=== PATIENT | male | born 1965 | race Caucasian/White ===

== ENCOUNTER 2020-04-16 06:00 | Day surgery (SDC) | payer OTHER, SELFPAY ==
[2019-07-10 15:09] VITALS: BMI 30.9
--- NOTE | 2020-04-15 19:32 | HP.PCM_ITS ---
History and Physical Date of Admission: 04/16/20 HISTORY OF PRESENT ILLNESS 54 year old man presents with an enlarging soft tissue mass left posterior neck over the last several months. He denies headaches. He denies recent infection. There is some discomfort when he bumps it. He denies trauma. He presents at this time for further evaluation and treatment. PAST MEDICAL HISTORY Asthma PAST SURGICAL HISTORY None ALLERGIES No Known Allergies MEDICATIONS albuterol sulfate fluticasone furoate-vilantero FAMILY HISTORY Other - Asthma SOCIAL HISTORY Smoking - Never. Alcohol use - Yes. Substance use - No. REVIEW OF SYSTEMS General - Denies fever, fatigue, and weight loss. Eyes - Denies cataracts and glaucoma. ENT - Denies nasal congestion and sore throat. Endocrine - Denies excessive thirst and urination. Skin - Denies skin cancer. Has enlarging soft tissue mass left posterior neck. Musculoskeletal - Denies joint pain, joint stiffness, weakness of muscles and joints, back pain, and arthritis. Neuro - Denies headaches. Cardiovascular - Denies chest pain, fatigue, and shortness of breath with exer tion. Psych - Denies anxiety and depression. Respiratory - Denies chronic cough. Has shortness of breath. Has asthma. Gastrointestinal - Denies nausea, vomiting, diarrhea, and constipation. Hematologic - Denies abnormal bruising and bleeding. Genitourinary - Denies hematuria and urinary frequency. PHYSICAL EXAMINATION General - Alert and Oriented. HEENT - PERRL. EOMI. Throat is clear. No suspicious lesions noted. Neck - Supple and nontender. No cervical adenopathy. On the left posterior neck is a soft tissue mass that measures 1.5 cm. It is mobile. No evidence infection. Mild discomfort when it is bumped. Lungs - Clear to auscultation. Heart - Regular rate and rhythm. Abdomen - Soft and nondistended. Extremities - FROM. No axillary adenopathy. Radial pulses are palpable. No suspicious lesions noted. Neuro - CN II-XII grossly intact. Psych - Normal mood and affect. ASSESSMENT 1.5 cm painful soft tissue mass left posterior neck. PLAN Recommend excision of this soft tissue mass left posterior neck and send it to Pathology for analysis to rule out carcinoma. Depending how much skin is needed to be excised will determine if a local skin flap is necessary. Surgery will be done under local anesthesia and IV sedation on an outpatient basis. Patient was informed of the risks and complications of the procedure including alternatives to surgery. These were discussed with the patient personally. Patient voices understanding and wishes to proceed. Some of the risks and complications were included in a form from the [employer] [place] [employer]. We discussed the current risks associated with COVID-19. While it is understood that there is a community spread of COVID-19, the risk of pauline COVID-19 while at [facility] ([facility]) is very low; however, the risk cannot be completely mitigated because of the community spread of the disease. We discussed in detail the risk of exposure to and/or potential harm posed by the COVID-19 virus with having a surgery/procedure at this time versus the risk of delaying the surgery/procedure. It is not possible to know either the risk of delaying the surgery or procedure or chance of getting an infection with perfect accuracy, but a joint decision was made to proceed at this time with the scheduled surgery/procedure as indicated on the consent form. Patient was notified that we will need to comply with any screening or testing [facility] wishes to perform or that surgery may be delayed for any positive results. Discussed with the patient that I was tested for COVID-19 on 12/25/19 which was negative and on 01/08/20 which was negative and on 01/22/20 which was negative and on 02/05/20 which was negative and on 02/19/20 which was negative and on 03/11/20 which was negative and on 04/01/20 which was negative. My testing regimen at this time is to be COVID-19 tested every 2 weeks or so. Procedure Criteria Procedure Type: Elective COVID Risk Discussion: The surgeon/proceduralist and patient have discussed in detail the risk of exposure to and/or potential harm posed by the COVID-19 virus with having a surgery/procedure at this time versus the risk of delaying the surgery/procedure. It is not possible to know either the risk of delaying the surgery or procedure or chance of getting an infection with perfect accuracy, but a joint decision was made between the patient and the surgeon/proceduralist to proceed at this time with the scheduled surgery/procedure as indicated on the consent form.
[2020-04-16] VITALS (7 sets, daily range): BP systolic 103–121; BP diastolic 72–80; PULSE 56–66; RESP 14–18; TEMP 36.1–36.6; O2SAT 93–98; BMI 31.6
--- NOTE | 2020-04-16 | MASS_PTH ---
PATIENT: NATALYA RICE [place] [facility] [place][id number] AGE/SX: 54/M ROOM: RE04/16/[address]: Dr. Pato Childress MD : [id number] BED: DIS: 04/16/2020 SPEC #: [id number] RECD: 04/16/20 09:45 STATUS: RADHA FRANCY #: [id number] GREG: 04/16/20 00:[address]: Pato Childress DEPT: SURGICAL PATHOLOGY RECD BY: Benedicto Colon ENTERED: 04/16/20 09:46 SP TYPE: Mass OTHR DR: Dr. Natalya Santamaria MD Tissues: Neck, NOS Procedures: Surgery Specimen Level III HEADER OPERATION: Excision soft tissue mass posterior neck PRE-OP DIAGNOSIS: 1.5 cm painful soft tissue mass left posterior neck TISSUE SUBMITTED: 1.5 cm painful soft tissue mass left posterior neck MICROSCOPIC DIAGNOSIS Soft tissue mass, left posterior neck, excision: Epidermal inclusion cyst. AM:frandy 04/19/20 MICROSCOPIC DESCRIPTION Slides are reviewed. GROSS DESCRIPTION Received in fixative is one container labeled with the patient's name and designated 1.5 cm painful soft tissue mass left posterior neck. The specimen consists of a piece of skin with underlying tissue. The piece of skin measures 1.6 x 0.5 cm. The underlying tissue measures 1.7 x 1.7 x 1 cm. Sections reveal underlying tissue consisting of cysts filled with staton-white cheesy material. [employer] Lead sections are submitted in one cassette. / DELMAR:frandy 04/16/20 TC:5 CPT: 90183
[2020-04-16] MEDS: Lactated Ringers 1,000 ML 100 ML IV (06:45)
[2020-04-16] MEDS: Mupirocin Ointment 22gm Tube 1 APPLIC (07:55)
--- NOTE | 2020-04-16 08:10 | OP.PCM_ITS ---
Report of Operation Date of Procedure: 04/16/20 Pre-Operative Diagnosis: 1.5 cm painful soft tissue mass left posterior neck. Post-Operative Diagnosis: Same. Surgery/Procedure Performed:: Excision 1.5 cm painful soft tissue mass left posterior neck with 2 cm layered closure. Description of Surgical Findings:: 54 year old man presents with an enlarging soft tissue mass left posterior neck over the last several months. He denies headaches. He denies recent infection. There is some discomfort when he bumps it. He denies trauma. Patient was informed of the risks and complications of the procedure including alternatives to surgery. These were discussed with the patient personally. Patient voices understanding and wishes to proceed. Some of the risks and complications were included in a form from the [place] [employer]. marine engine mechanic: None Type of Anesthesia:: Local MAC - xylocaine with epinephrine and IV sedation. Specimen's removed: Painful soft tissue mass left posterior neck to Pathology. Drains: None. Estimated Blood Loss (mL): 5 ml. Description of Procedure: Patient was taken to OR in supine position and was given IV sedation. The patient was placed in the lateral position. The left posterior neck was prepped and draped in the usual fashion. SCD's were placed for DVT prophylaxis. Perioperative antibiotics were given intravenously. For the procedure, I wore and N95 mask and wore proper eyewear protection. The soft tissue mass left posterior neck was infiltrated with xylocaine and epinephrine. After waiting 5 minutes for the anesthetic to take effect, I made an oblique elliptical excision over the mass and dissection was carried into the subcutaneous tissue. There was a lot of scar tissue around the mass which was excised. The mass was adherent to the underlying muscle and was dissected free off the muscle. The mass was well encapsulated and was sent to Pathology for analysis to rule out carcinoma. The wound was irrigated with saline. Hemostasis was obtained with electrocautery. The wound was closed in a layered fashion with 5-0 Monocryl interrupted sutures for the deep dermis and subcutaneous tissue. The skin was approximated with 5-0 Prolene simple interrupted sutures. Steri-strips were applied along with antibiotic ointment and followed by an Op-site dressing. Patient tolerated the procedure well and was sent to PACU in satisfactory condition. Patient will be sent home on antibiotics and pain medication. He w ill keep his head elevated during the initial postoperative period. Patient will followup in a week for a wound check and for discussion of the pathology report and for removal of the sutures. Grafts/Implants Used: None. - Complications None. - Admit VTE Documentation VTE Present on Admission: No VTE Mechan Device Prophylaxis: SCD's VTE Pharm Prophylaxis ordered?: No Surgery Charges CPT - 35985 ICD-10 - R22.1, R20.8
--- NOTE | 2020-04-16 08:18 | DCINST_ITS ---
You will use the following diet at home:: No restrictions Discharge Activity: May Shower - in two days., - - keep head elevated. no heavy lifting. May shower in (days): 2 May resume sexual activity in: No Restrictions Weight Bearing Status: Weight bearing as tolerated Lifting Restrictions: 20 lbs. Keep extremity elevated above heart level: - - elevate head. Call your doctor if your incision/area has: Continuous Slow Oozing, Sudden Increased Bleeding, Increased Pain/ Swelling, Increased Redness, Foul Smelling Discharge, Swelling at the incision site Call your doctor if you observe: Fever of 101 or Higher, Coldness, Increased Pain, Shortness of breath, Chest pain, Calf discomfort, Uncontrolled pain Suture Line Care: - - after operative dressing removed in two days, apply antibiotic ointment to suture line daily. Remove Dressing in (days):: 2 Cleanse incision/area with: - - may get incision wet in the shower in two days. Allergies/Adverse Reactions: Allergies No Known Allergies Allergy (Unverified 04/08/20 11:11) Medications to take at Discharge fluticasone furoate 100 mcg-vilanterol 25 mcg/dose inhalation powder 1 inh INHALATION DAILY 07/10/19 Albuterol IH (ProAir) [Proair Hfa] 1 - 2 puff INHALATION Q6H PRN PRN 04/08/20 Mometasone Furoate [Nasonex] 1 spray NASAL DAILY PRN 04/08/20 Multivitamin [Multiple Vitamins] 1 ea PO DAILY 04/08/20 Clindamycin HCl [Cleocin] 300 mg PO TID #15 cap 04/16/20 Oxycodone HCl/Acetaminophen [Percocet 5/325] 1 tablet PO Q6H PRN PRN 5 Days #20 tablet 04/16/20 The following prescriptions were given: Clindamycin HCl [Cleocin] 300 mg PO TID #15 cap Transmission Status: Pending to [facility] Oxycodone HCl/Acetaminophen [Percocet 5/325] 1 tablet PO Q6H PRN PRN 5 Days #20 tablet PRN Reason: Pain Score 6-10 Transmission Status: Received by [facility] Primary Care Physician: Kong Santamaria MD [Primary Care Provider] - Test Results: Test results from this visit will be discussed in further detail at your follow- up appointment, if applicable. Please Follow Up With: Pato Childress MD When: one week. call [phone] for appt. Proposed Discharge Date: 04/16/20
== END 2020-04-16 08:59 | disposition home or self-care (01) ==
LOC: SDC 06:00 → AC 06:01
PROVIDERS: Anesthesiology; PCP Family Medicine; Referring Provider Surgery; Visit Provider Surgery
PROC: (CPT 21556; principal; 2020-04-16 07:20)
DX: L72.0 Epidermal cyst (principal); J45.909 Unspecified asthma, uncomplicated; Z79.51 Long term (current) use of inhaled steroids; Z20.828 Contact with and (suspected) exposure to other viral communicable diseases
CPT/HCPCS: 00300; 21556; 87635; 88304; C9803; J7120; U0003